=== PATIENT | female | born 1970 | race Caucasian/White ===

== ENCOUNTER 2020-03-09 09:02 | Emergency (ER) | payer OTHER, BC, SELFPAY ==
--- NOTE | ~2020-03-09 | XR_ITS ---
EXAMINATION: XR knee LT min 4V EXAM DATE: 03/09/2020 09:52 INDICATION: Left knee pain, fall. Abrasion to proximal tibia. TECHNIQUE: Left knee frontal, crosstable lateral, orthogonal oblique projections for interpretation. Comparison is made to prior examination from 02/17/2019. FINDINGS: No evidence osteochondral defect or joint body in the left knee joint. There are no acute fractures or dislocations identified. There is no subcutaneous gas. The soft tissue is unremarkabl e. There are no radiopaque foreign bodies. No joint effusion. IMPRESSION: 1. Left knee exam without acute osseous findings. Reviewed, dictated and finalized at location A.
--- NOTE | ~2020-03-09 | XR_ITS ---
XR foot LT min 3V DATE: 03/09/2020 09:51 INDICATION: Fall. Third toe pain. Abrasion. TECHNIQUE: 4 views COMPARISON: None FINDINGS: There is prominent plantar calcaneal enthesopathy, without erosive change or periostitis. No fracture or dislocation, periosteal reaction or bone destruction is detected. Some hypertrophic apparently chronic bony changes along the dorsal aspect of the tarsal area. IMPRESSION: No fracture or dislocation Prominent plantar calcaneal enthesopathy Reviewed, dictated and finalized at location B.
--- NOTE | ~2020-03-09 | XR_ITS ---
EXAMINATION: XR elbow LT min 3V DATE: 03/09/2020 09:51 INDICATION: Left elbow pain. TECHNIQUE: 4 views of left elbow were obtained. COMPARISON: None. FINDINGS: Bone alignment is normal. No fracture. Joint spaces are well maintained. IMPRESSION: 1. Normal left elbow. Reviewed, dictated and finalized at location A. IMPRESSION: 1. Normal left elbow.
[2020-03-09 09:09] VITALS: BP 116/64; PULSE 66; RESP 16; TEMP 36.1; O2SAT 99
--- NOTE | 2020-03-09 09:30 | ED.LOWEXIN ---
HPI - Extremity Injury (Lower) General Chief Complaint: Extremity Injury, Lower Stated Complaint: knee pain Time Seen by Provider: 03/09/20 09:08 Source: patient Mode of arrival: ambulatory Limitations: no limitations History of Present Illness HPI Narrative: This is a 49 year old female that presents to the ER for left knee pain after a fall today. Reports she tripped over a cone at work. Reports falling onto her left side. Reports left knee and elbow pain. Also reports some pain in the toes on the left side. Reports some abrasions to the elbow and knee. She was told by the school nurse to come to the ED to get updated on tetanus. Denies hitting her head, loss of consciousness, prodromal symptoms, or other injuries. Related Data Home Medications Medication Instructions Recorded Confirmed fluoxetine 20 mg capsule 20 mg PO DAILY 07/01/19 11/24/19 multivitamin 1 tablet PO DAILY 07/01/19 11/24/19 Allergies Allergy/AdvReac Type Severity Reaction Status Date / Time No Known Allergies Allergy Verified 03/09/20 09:17 Review of Systems Review of Systems: Narrative: CONSTITUTIONAL: Denies fever SKIN: Reports abrasions MUSCULOSKELETAL: Reports, joint pain, and myalgia. NEUROLOGIC: Denies numbness, or weakness. All systems reviewed & are unremarkable except as noted in HPI and below PMFSH Social History Social History Smoking status: Never smoker Alcohol intake: current Gender identity (if verbalized by the patient): Female Exam Narrative: Exam Narrative: GENERAL: Well-appearing, obese, and in no acute distress. HEAD: Normocephalic, atraumatic. EYES: EOMI. CHEST: Clear to auscultation. No respiratory distress. No wheezes rales or rhonchi HEART: Regular rate and rhythm. No murmur heard. Normal peripheral pulses. EXTREMITIES: Normal range of motion. No edema or obvious deformity. Normal radial and DP pulses SKIN: Warm, dry, no rash. Superficial abrasions to the left elbow and knee NEURO: No focal deficits. Alert and oriented x3. PSYCH: Normal mood and affect Course Vital Signs Vital signs: Vital Signs Temperature 97.0 F L 03/09/20 09:09 Pulse Rate 66 03/09/20 09:09 Respiratory Rate 16 03/09/20 09:09 Blood Pressure 116/64 03/09/20 09:09 Pulse Oximetry 99 03/09/20 09:09 Temperature 97.0 F L 03/09/20 09:09 Pulse Rate 66 03/09/20 09:09 Respiratory Rate 16 03/09/20 09:09 Blood Pressure 116/64 03/09/20 09:09 Pulse Oximetry 99 03/09/20 09:09 MDM - Extremity Injury (Lower) MDM Narrative Medical decision making narrative: Patient presents to the emergency department after a fall today with left elbow, knee, and toe pain. Denies prodromal symptoms, hitting her head, or loss of consciousness. Left elbow and knee x-rays are without acute findings. Left foot x-ray is also without acute osseous abnormalities. Patient had superficial abrasions. Reported she would like to get her tetanus vaccine updated while here as well. She was given this in the ED. Patient was instructed to rest, ice and take [id number] pain medication as needed. She is to follow-up with primary care doctor. She was given warnings to return to the ER Imaging Data Radiologist's impression: ITS Impressions Foot X-Ray 03/09/20 09:52 IMPRESSION: No fracture or dislocation Prominent plantar calcaneal enthesopathy Elbow X-Ray 03/09/20 10:01 IMPRESSION: 1. Normal left elbow. Knee X-Ray 03/09/20 10:05 IMPRESSION: 1. Left knee exam without acute osseous findings. Critical Care Time Critical Care Time Critical Care Time: No Discharge Plan Discharge Clinical Impression: Fall from ground level, Acute pain of left knee, Elbow pain, left, Pain in toe of left foot Patient Disposition: Home, Self-Care Condition: Stable Instructions: Contusion in Adults (ED) Additional Instructions: Return to the emergen
[2020-03-09] MEDS: ACETAMINOPHEN 500 MG TABLET 1000 MG PO (09:51)
[2020-03-09] MEDS: TETANUS,DIPHTHERIA,AC PERTUSSIS ADULT (0.5 ML) BOOSTRIX IM (09:52)
[2020-03-09 10:28] VITALS: BP 119/68; PULSE 70; RESP 16; O2SAT 99
== END 2020-03-09 10:30 | disposition home or self-care (01) ==
PROVIDERS: Emergency Provider Emergency Medicine; PCP Internal Medicine
DX: M25.562 Pain in left knee (principal); M25.522 Pain in left elbow; M79.675 Pain in left toe(s); Z23 Encounter for immunization; M77.32 Calcaneal spur, left foot; W18.09XA Striking against other object with subsequent fall, initial encounter
CPT/HCPCS: 73080; 73564; 73630; 76080; 90471; 90715; 99284; A9270

== ENCOUNTER 2022-04-26 10:03 | Outpatient (CLI) | payer OTHER, BC, SELFPAY ==
--- NOTE | 2022-04-26 10:34 | ECG_ITS ---
Measurements Intervals [place] Rate: 54 P: 14 MA: 148 QRS: 66 QRSD: 86 T: 50 QT: 439 QTc: 419 Interpretive Statements SINUS BRADYCARDIA BORDERLINE ECG NO PREVIOUS ECG AVAILABLE FOR COMPARISON Electronically Signed On 04-26-2022 12:28:50 PRODUCT DEVELOPMENT ASSISTANT by Rito Meyers D.O.
[2022-04-26 11:38] LABS: Basophils Percent Auto 0.5 % (0.2-1.2); Eosinophils Absolute Auto 0.1 K/mm3 (0-0.3); Hemoglobin 13.9 g/dL (12.0-15.0); Immature Granulocyte Absolute 0.01 K/mm3 (0.00-0.031); Immature Granulocyte Percent A 0.3 % (0-0.5); Lymphocytes Absolute Auto 1.36 K/mm3 (0.9-3.2); Lymphocytes Percent Auto 34.5 % (18.3-44.2); Mean Corpuscular HGB Conc 33.1 g/dl (32-36); Mean Corpuscular Hemoglobin 30.9 pg (26-34); Mean Corpuscular Volume 93.3 fl (80-100); Mean Platelet Volume 10.1 fl (7.4-10.4); Monocytes Absolute Auto 0.3 K/mm3 (0.1-0.6); Monocytes Percent Auto 6.3 % (2.6-8.5); Neutrophils Absolute Auto 2.2 K/mm3 (1.3-6.7); Neutrophils Percent Auto 56.4 % (45.5-73.1); Platelet Count Result 189 k/mm3 (150-375); Red Cell Distribution Width 12.7 % (11.5-14.5); White Blood Count 3.9 K/mm3 (4.5-10.0)
== END 2022-04-26 10:04 | disposition home or self-care (01) ==
LOC: ANHSURGERY 10:09
PROVIDERS: PCP Internal Medicine; Visit Provider Orthopaedic Surgery
DX: M17.10 Unilateral primary osteoarthritis, unspecified knee (principal); Z01.818 Encounter for other preprocedural examination; R00.1 Bradycardia, unspecified
CPT/HCPCS: 36415; 85025; 93005

== ENCOUNTER 2022-05-23 00:21 | Day surgery (SDC) | payer OTHER, BC, SELFPAY ==
--- NOTE | 2022-04-26 09:44 | PC.NURSE ---
PRE-OP INSTRUCTIONS, PLEASE READ CAREFULLY Report to the Outpatient Waiting Room, entrance under the green pavilion located off [facility], at time _0600_ on date _05/23/22_. Planned Procedure Time: _0730_. Time changes happen often and if your time is changed the preop area will call you the afternoon before. - You and your visitor will be asked to self-screen and do not enter if you have any COVID symptoms. - Only one visitor is requested with a max of two and NO children visitors are allowed at this time. - The patient visitor may be requested to leave or wait in car when not with patient due to distancing restrictions. - A mask is optional within the hospital. Patients may have clear liquids (water, carbonated beverages, clear teas, apple juice) until 3 hours prior to surgery (0430 AM) with a maximum of 20 ounces. - No food from midnight until time of surgery Take the following medications with a SIP of water the morning of surgery: _FLUOXETINE_ Medications to discontinue per ANESTHESIA - _MULTIVITAMIN, BIOTIN 3 DAYS PRIOR TO SURGERY, Date to take last dose 05/19/22_ Please no make-up, nail south sudanese, hairspray, perfume, deodorant, or body powder the day of surgery. No jewelry (including any body piercings) or valuables the day of surgery, leave them at home. Please take a shower or bath the night before, or the morning of, surgery with an antibacterial soap. Wear comfortable, loose fitting clothing. - Jewelry must be removed prior to entering the operating room. Rings and piercings that are not removed may be cut off. - The hospital will not accept responsibility for valuables. - Please leave all valuables, including medications, at home the day of surgery. If you are going home after surgery, a licensed national flatbed truck driver must drive you home. - NO public transportation without another adult if you receive anesthesia. - We recommend that an adult stay with you for 24 hours following discharge. - We also recommend that you do not drive, make important decision, drink alcoholic beverages, or take any drugs that were not prescribed by your health care provider for at least 24 hours after your discharge time. Follow any additional instructions given to you by DR. CORRALES. If you or anyone in your household have experienced Covid symptoms in the past week, please notify your surgeon or the nurse liaison at the phone number below for possible testing. Instructions given to _PT_and asked if any additional questions and then verbalized understanding. Patient advised to call surgeon office or pre surgery nurse liaison [phone] if any additional questions.
[2022-04-26 10:21] VITALS: BP 108/82; PULSE 52; RESP 18; TEMP 36.2; O2SAT 97; BMI 26.1
[2022-05-23] VITALS (10 sets, daily range): BP systolic 90–118; BP diastolic 38–68; PULSE 63–98; RESP 12–20; TEMP 36.6–37.1; O2SAT 95–100
--- NOTE | ~2022-05-23 | XR_ITS ---
Right Knee Technique: AP, lateral, and sunrise views were obtained. Clinical History: Postoperative Findings: Patient is status post partial arthroplasty of the knee involving the patellofemoral compar tment. No acute osseous fracture seen. Postoperative changes noted in the soft tissues. No joint effu maged is seen. Impression: Status post partial arthroplasty of the right knee involving the patellofemoral compartment. Postoperative changes in the surrounding soft tissues. Reviewed, dictated and finalized at location [] E FOREMAN Impression: Status post partial arthroplasty of the right knee involving the patellofemoral compartment. Postoperative changes in the surrounding soft tissues.
[2022-05-23] MEDS: LACTATED RINGERS 1,000 ML 30 ML IV CONT ×2 (06:30→09:46)
[2022-05-23] MEDS: TRANEXAMIC ACID 1,000MG/ISO100 1,000 MG/100 ML BAG 200 MG IVPB (06:30)
[2022-05-23] MEDS: ACETAMINOPHEN 500 MG TABLET 1000 MG PO (06:30)
--- NOTE | 2022-05-23 07:06 | WPDHPUPDATE1 ---
History and Physical Update Update Date/Time: 05/23/22 07:06 History and Physical has been reviewed, including an updated exam of the patient. There are NO changes in the patient's condition. Risks, benefits, and alternatives have been discussed and questions answered. Patient agrees to proceed with procedure.
--- NOTE | 2022-05-23 07:17 | WPDANESEPPF ---
Anes - Initial Pre Proc Eval Procedure: Operation Date: 05/23/22 07:30 Proposed Procedures p Right Patella Femoral Arthroplasty - Sabas Chadwick MD Date/Time: 05/23/22 07:17 Surgeon: Sabas Chadwick MD Pre Op Diagnosis: right patella femoral arthritis Patient Data Age: 51 Gender: F Height: 1.68 m Weight: 73.3 kg Last Vital Signs Temp 36.6 C 05/23/22 07:05 Pulse 63 05/23/22 07:05 Resp 18 05/23/22 07:05 BP 90/38 L 05/23/22 07:05 Pulse Ox 99 05/23/22 07:05 O2 Del Method Room Air 05/23/22 07:05 Allergies Allergy/AdvReac Type Severity Reaction Status Date / Time No Known Allergies Allergy Verified 05/23/22 07:04 Home Medications Medication Instructions Recorded Confirmed Type fluoxetine 20 mg capsule 20 mg PO DAILY 07/01/19 05/23/22 History biotin 1 mg capsule 1 mg PO DAILY 11/10/20 05/23/22 History multivitamin combination no.55 1 tablet PO DAILY 11/10/20 05/23/22 History Patient hx anesthesia problems: none Family hx anesthesia problems: none Results Review: All pre-operative results and documents have been reviewed as part of the pre-operative evaluation. FOR[facility]LY [facility], [facility] Past Medical History Medical History Anxiety Dysuria GERD (gastroesophageal reflux disease) Patellofemoral arthritis Restless leg syndrome Surgical History Surgical History H/O gastric sleeve (~2020) History of bilateral breast reduction surgery (~1999) History of History of tubal ligation (~1997) Family History Family History Mother Diabetes mellitus Other Family history of arthritis Social History Social History Smoking status: Never smoker Second hand tobacco smoke exposure: No Alcohol intake: never Substance use: never Substance use type: does not use Lack of Transportation: No Lack of Food: Never True Current Housing: I Have Housing Concerned About Future Housing: No Difficulty Paying Gas/Electric Bills: No Currently Unemployed: No Education: Associate Degree Difficulty w/ Childcare or Family Care: No Living arrangements: with family Gender identity (if verbalized by the patient): Female Spiritual care concerns: No Anes - Eval Final PreProcedure Day of Procedure 05/23/22 07:17 Patient weight: overweight Heart: regular rate and rhythm Lungs: clear to auscultation Airway: Mallampati scale class II Neurological: alert and oriented Last oral intake: >/= 8 hours ASA classification: II Emergent: no Anesthetic plan: proceed Anesthesia type and monitoring: general LMA and standard monitoring Results Review: All pre-operative results and documents have been reviewed as part of the pre-operative evaluation. Informed Consent: The patient's anesthetic plan and its attendant risks and benefits were discussed with the patient/family/POA. Questions were solicited and answers provided to the satisfaction of the patient/family/POA.
[2022-05-23] MEDS: ceFAZolin 2 GM/D5W 50 ML 2 GM/50 ML BAG IVPB (07:33)
[2022-05-23] MEDS: GENTAMICIN BONE CEMENT REFOBACIN 1 EACH TOPICAL (08:10)
[2022-05-23] MEDS: fentaNYL CITRATE INJ (*CRX) 100 MCG/2 ML VIAL 25 MCG IV PUSH ×8 (10:00→11:00)
[2022-05-23] MEDS: oxyCODONE HCL (*CRX) 5 MG TAB IR PO (11:06)
--- NOTE | 2022-05-23 12:00 | SUR.PHASEII ---
Vital signs stable, pain controlled. Patient dressed and waiting for PT eval before discharge.
[2022-05-23] MEDS: ONDANSETRON INJ 4 MG/2 ML VIAL IV PUSH (13:32)
--- NOTE | 2022-05-23 16:38 | W.PM.PROC2 ---
Procedure Note - Detailed Date of Procedure 05/23/22 Pre-op Diagnosis Right knee patellofemoral arthritis Post-op Diagnosis Same Procedure Performed Patellofemoral arthroplasty, right knee. Surgeon Sabas Chadwick MD Mixer Whipped Topping Camila Schmitt PA-C Anesthesia General Description of Procedure Preoperative antibiotics given. The leg was prepped and draped usual sterile fashion. A longitudinal incision was created over the anterior aspect of the knee. Well-padded tourniquet was placed on the thigh. The limb was exsanguinated and tourniquet inflated to 300 mmHg. A trivector approach to the knee was performed exposing the patella and trochlea area. Patella was measured and cut for resurfacing to replace the resected bone. The 35 mm round patella fit very nicely. Lug holes were drilled. Attention was turned to the trochlea. The intramedullary hole was drilled and the guide placed. Care was taken to align the distal cutting jig perpendicular to the AP axis. The anterior cortex was reference laterally to prevent notching. The guide was pinned and the anterior femur was resected with the oscillating saw. The guide for the Milling process was placed. The size 1 was clearly undersized. The size 2 fit almost anatomic. The Milling guide was secured and the bone resected according to the technique guide. The lug holes were drilled. The trial fit nicely. Patellar tracking was assessed. Excellent tracking was confirmed without tilt. The knee was copiously irrigated with antibiotic irrigation. Real implants were cemented into position. Care was taken that there was no prominence to the trochlear implant and the patella tracked very nicely. The tourniquet was released. Meticulous hemostasis maintained. Estimated blood loss 50 mL. The wound closed in layers with interrupted 1. Vicryl suture, 2. Stratafix suture, 2-0 Stratafix suture, 3-0 Stratafix suture. Steri-Strips placed on the skin with a bulky dressing. The patient tolerated the procedure well. There were no complications. Physician graphic design assistant, Camila Schmitt PA-C, required for surgery; including patient positioning, draping, tissue retraction, maintaining instrument position, wound closure, and dressing placement. Implants [employer] patellofemoral arthroplasty size 2 trochlea, 35 all polyethylene patella. Estimated Blood Loss -20.0 Pathology None sent Complications No immediate complications Condition Stable Disposition PACU [facility] Billing Surgery - Charge Forward: Surgery Billing
== END 2022-05-23 13:45 | disposition home or self-care (01) ==
PROVIDERS: PCP Internal Medicine; Visit Provider Orthopaedic Surgery
PROC: (CPT 27446; principal; 2022-05-23 07:30)
DX: M17.11 Unilateral primary osteoarthritis, right knee (principal); F41.9 Anxiety disorder, unspecified; Z98.84 Bariatric surgery status
CPT/HCPCS: 27599; 36415; 73560; 85025; 93005; 97110; 97161; A9270; C1713; J0171; J0690; J1100; J1170; J1885; J2250; J2270; J2370; J2405; J2704; J2795; J3010; J7120

== ENCOUNTER 2023-06-04 10:10 | Outpatient (CLI) | payer OTHER, BC, SELFPAY ==
--- NOTE | ~2023-06-04 | XR_ITS ---
XR knee RT 3V 06/04/2023 10:46 Indication: Right knee joint replacement Procedure: 3 views right knee Comparison: Comparison to multiple prior studies sequentially, with oldest reviewed study dated 10/2022. Findings: Status post partial knee arthroplasty of the patellofemoral compartment. Prosthesis well se ated. No fracture or traumatic malalignment. No significant joint effusion. Impression: 1: No acute bone or joint abnormality. Reviewed, dictated and finalized at location B. ARATION OPERATOR Impression: 1: No acute bone or joint abnormality.
== END 2023-06-04 10:11 | disposition home or self-care (01) ==
PROVIDERS: PCP Internal Medicine; Visit Provider Orthopaedic Surgery
DX: Z47.1 Aftercare following joint replacement surgery (principal)
CPT/HCPCS: 73562

== ENCOUNTER 2025-01-31 08:48 | Outpatient (CLI) | payer OTHER, BC, SELFPAY ==
--- OUTSIDE RECORDS SUMMARY | 2004-01-23 09:45 | XMS_ITS | Continuity of Care Document ---
Author Organization [facility] Address [id number] [place] [address] [place] [address] Phone Care Team Providers Care Busboy Name Role Phone Milton Cannon DO Unavailable Unavailable Advance Directives Directive Yes / No Effective Date File Name No Information Encounters Encounter Description Practice Location Reason(s) For Visit Diagnoses Date Provider Providers Copied on Encounter [facility], [address], [place], [place], [id number], [place] tel:[phone] [facility] (formerly [facility]) No Information Davis Gonzalez. [address] [place], [address], [place]. tel: [phone] Family History Family Member Type Diagnosis Age At Onset No Information Payers Payer name Insurance type Covered alliance party ID Authoriza tion(s) [employer] SOI CI [id number] [facility] [id number] Social History Type Description Quantity Date Captured Comments Sex Female Smoking Status No Information Chief Complaint And Reason For Visit No Information Reason For Referral Reason For Referral No Information History Of Present Illness Encounter Date Complaint History Of Prese nt Illness No Information Functional Status Date Functional Assessmen t No Information Instructions Date Instruction Additional Infor mation No Information Assessments Type Assessment Date No Information Patient Care Teams Name Effective Dates (start - stop) Status Members No Information
--- OUTSIDE RECORDS SUMMARY | 2025-01-31 09:13 | XMS_ITS | Clinical Summary ---
Author Organization [facility] Address [address] [place] [id number] Care Team Providers Care Manager Transfusion Name Role Phone Michel Medina MD Primary Care Provider [phone] Allergies No known active allergies Medications FLUoxetine (PROzac) 20 mg capsuleIndicatio ns:Leukopenia, unspecified type 1 capsule (20 mg total) daily Active vitamin D3-vitamin K2 25 mcg (1,000 unit)-90 mcg tablet,disintegr atingIndications :Leukopenia, unspecified type Take 125 mg by mouth Active cyanocobalamin, vitamin B-12, 5,000 mcg tablet, sublingualIndica tions:Leukopenia , unspecified type Place 5,000 mcg under the tongue daily Active biotin 10,000 mcg capsuleIndicatio ns:Leukopenia, unspecified type Take by mouth daily Active ascorbic acid (ascorbic acid with ton hips) 500 mg tablet,chewableI ndications:Leuko penia, unspecified type every other day Active multivitamin capsuleIndicatio ns:Leukopenia, unspecified type Take 2 capsules by mouth daily Active Active Problems Problem Noted Date Diagnosed Date Leukopenia 12/05/2022 Surgical History Surgery Date Site/Laterality Comments SLEEVE GASTROPLASTY COMBINED REDUCTION MAMMAPLAS TY W/ ABDOMINOPLASTY TUBAL LIGATION KNEE ARTHROPLASTY REDUCTION MAMMAPLASTY 06/09/1999 - 06/08/2000 Bilateral BREAST LUMPECTOMY Right BREAST CYST ASPIRATION Right Medical History Medical History Date Comments Anxiety Family History Relation Name Status Comments Father Social History Tobacco Use Types Packs/Day Years Used Date Smoking Tobacco: Former Cigarettes Tobacco Cessation:Counseling Given: Not Answered AUDIT-C Answer Date Recorded Frequency of Alcohol Consumption Not on file 12/06/2022 Q2: How many drinks containi ng alcohol do you have on a typical day when you are drinking? Patient does not drink Frequency of Binge Drinking Not on file 11/09 Comments No Sex and Gender Information Value Date Recorded Sex Assigned at Not on file Legal Sex Female 8:19 PM MOONER Gender Identity Not on file Sexual Orientation Not on file Obstetrics History Para Term AB IAB SAB Ectopic Multiple Livin g Live Births 2 2 2 Date Outcome GA Total Labor Labor/07/12 Weight Sex Type Anes PTL Liset A1 A5 Name Clin Term Term Last Filed Vital Signs Vital Sign Reading Time Taken Comments Blood Pressure 105/72 12/06/2022 2:37 PM CDT Pulse 53 12/06/2022 2:37 PM CDT Temperature 36.4 C (97.6 F) 12/06/2022 2:37 PM CDT Respiratory Rate 18 12/06/2022 2:37 PM CDT Oxygen Saturation 100% 12/06/2022 2:37 PM CDT Inhaled Oxygen Concentration - - Weight 72.1 kg (159 lb) 12/06/2022 2:37 PM CDT s hoes off Height 166.4 cm (5' 5.5) 12/06/2022 2:37 PM CDT Body Mass Index 26.06 12/06/2022 2:37 PM CDT Plan of Treatment Health Maintenance Due Date Last Done Comments Cervical Cancer Screening 1969 Colon Cancer Screening-Colonoscopy 1969 Depression Screening 1969 Hepatitis C Screening 1969 Hepatitis B Screening 10/30/1987 Regular Well Visit/Exam 18-64 10/30/1987 Covid-19 Vaccine ( season) 2024 04/27/2021, 04/27/2021, 07/26/2020, Additional history exists Influenza Vaccine (#1) 2025 2, 03/22/2021, 03/02/2020, Additional history exists Breast Cancer Screening-Mammogram 05/14/2025 05/14/2024 DTaP/Tdap/Td Vaccine (2 - Td or Tdap) 03/09/2030 03/09/2020 Zoster Vaccine Completed 11/01/2020, 06/08/2020 Pneumococcal vaccine <65 Aged Out No longer eligible based on patient's age to complete this topic Procedures Procedure Name Priority Date/Time Associated Diagnosis Comments SCREENING MAMMOGRAM BILATERAL W TOMER Schedule Routine, Read Routine (OP Routine) 05/14/2024 8:08 AM MOONER Screening mammogram, encounter for from Last 3 Months or Most Recently Relevant to Health Maintenance Results * Screening Mammogram Bilateral W Tomer (05/14/2024 8:08 AM MOONER) Anatomical Region Laterality Modality Breast Bilateral Mammography Impressions 05/26/2024 11:25 AM MOONER BI-RADS ATLAS category (overall): 1 - Negative There is no mammographic evidence of malignancy. A 1 year screening mammogram is recommended. The patient has been or will be contacted. We recommend annual screening mammography for women at average risk of breast cancer beginning at age 40, based on guidelines of the [employer] (ACR Practice Parameter for the Performance of Screening and Diagnostic Mammography) and [employer]. For women with and elevated risk of breast cancer, please refer to the ACR Practice Parameter for specific screening recommendations. The patient will be entered into a reminder system with a target due date of 1 year for her next screening exam. Narrative 05/26/2024 11:25 AM MOONER Screening Mammogram Bilateral W Tomer: 05/14/24 The study was acquired using full field digital technology and interpreted from soft copy. 2D digital mammographic views, as well as 3D digital tomosynthesis were performed in the CC and MLO projections. This study was resulted using Computer-Aided Detection (CAD). CLINICAL: Screening mammogram, encounter for. No relevant medical history has been documented for this patient. No known family history of breast cancer. Comparisons: 2022, 2021, and 2020. BREAST TISSUE: There are scattered areas of fibroglandular density. FINDINGS: No suspicious masses, suspicious calcifications, or other suspicious findings are seen within either breast. us Self Screening Mammogram IMG MAMMO PROCEDURES Fi nal Result from Last 3 Months or Most Recently Relevant to Health Maintenance Insurance [facility] OOS [facility] CHOICE PLUS [facility] H[facility]/PPO Address: [address] [address] [place] [address] [facility]ICE PLUS [facility] H[facility]/PPO Address: [address] [address] [place] [address] [employer]UE [employer] CHOICE OOS Member Subscriber Plan / Payer (Ef fective 2022-Present) Name:Keyshawn Castano Relation to Subscriber:Spouse Name:Elie Castano Date of :1967 (Home) [address]: [address] [place] [address] Payer ID:[id number] (NAIC) Type:BC ALLIANCE Address: [address] [place] [phone] Care Teams Manager Transfusion Relationship Specialty Start Date End Date Michel Medina MD PCP - General Internal Medicine 12/12/22
--- OUTSIDE RECORDS SUMMARY | 2025-01-31 09:13 | XMS_ITS | Clinical Summary ---
Author Organization [facility] Address [address] [place] [address] Care Team Providers Care Analytical Research Chemist Name Role Phone Michel Medina MD Primary Care Provider [phone] Source Comments [facility],non-owned Affiliates and Associated Physician Practices is amultiple site organization consisting of ambulatory clinics and hospital sitesin [place], [place], [place] and [place]. This disclosure is being madepursuant to the Care Everywhere program and may not contain all information available regarding this patient. Last updated 18.[facility] Allergies No known active allergies Medications * Be aware that medications may not be up to date on this document. Alwaysverify current medications with the patient. FLUOXETINE HCL PO Ac tive Social History Tobacco Use Types Packs/Day Years Used Date Smoking Tobacco: Never Comments Unknown Sex and Gender Information Value Date Recorded Sex Assigned at Not on file Legal Sex Female 10:41 PM CDT Gender Identity Not on file Sexual Orientation Not on file Last Filed Vital Signs Vital Sign Reading Time Taken Comments Blood Pressure 104/70 10/19/2016 10:19 AM CDT Pulse 82 10/19/2016 10:19 AM CDT Temperature 36.8 C (98.3 F) 10/19/2016 10:19 AM CDT Respiratory Rate 16 10/19/2016 10:19 AM CDT Oxygen Saturation 99% 10/19/2016 10:19 AM CDT Inhaled Oxygen Concentration - - Weight 99.8 kg (220 lb) 10/19/2016 10:19 AM CDT Height 167.6 cm (5' 6) 10/19/2016 10:19 AM CDT Body Mass Index 35.51 10/19/2016 10:19 AM CDT Plan of Treatment Health Maintenance Due Date Last Done Comments COLOGUARD (AGES 45-75) - COL ON CA SCREENING 1969 COLON MONITORING 1969 COLONOSCOPY - COLON CA SCREENING 1969 CT COLONOGRAPHY - COLON CA SCREENING 1969 Colorectal Cancer Screening 1969 FIT - COLON CA SCREENING 1969 FLEX SIG - COLON CA SCREENING 1969 LIPID TESTING 1969 MAMMOGRAM 1969 HIV SCREENING 1984 HEPATITIS C SCREENING 10/25/1987 DTAP/TDAP/TD VACCINES (1 - Tdap) 1988 HEPATITIS B VACCINE (1 of 3 - 19+ 3-dose series) 1988 PNEUMOCOCCAL VACCINE 50+ (1 of 1 - PCV) 10/30/2019 ZOSTER VACCINE (1 of 2) 10/30/2019 COVID-19 VACCINE (1 - 2023-2 5 season) 2024 DEPRESSION SCREENING 06/09/2024 INFLUENZA VACCINE (#1) 2025 HIB VACCINE Aged Out No longer eligi ble based on patient's age to complete this topic HPV VACCINE Aged Out No longer eligi ble based on patient's age to complete this topic MENINGOCOCCAL (Group B) VACC INE SHARED DECISION-MAKING Aged Out No longer eligibl e based on patient's age to complete this topic MENINGOCOCCAL GROUPS A/C/Y/W VACCINE Aged Out No longer eligible b ased on patient's age to complete this topic Insurance Advance Directives Documents on File Type Date Recorded Patient Wrapper Counter Expl anation Adv Directive/Living Will/POA 10/18/2016 Care Teams Analytical Research Chemist Relationship Specialty Start Date End Date Michel Medina MD PCP - General Internal Medicine 10/19/16
--- OUTSIDE RECORDS SUMMARY | 2025-01-31 09:13 | XMS_ITS | Clinical Summary ---
Author Organization [facility] Address [address] [place] [address] Care Team Providers Care Audio Operator Name Role Phone Unavailable Primary Care Provider Unavailabl e Immunizations Immunization Administration Dates Next Due Covid-19, Mrna, Lnp-s, PF, 5 0 mcg/0.25 mL dose (Moderna) 04/27/2021 Social History Tobacco Use Types Packs/Day Years Used Date Smoking Tobacco: Never Assessed Comments Unknown Sex and Gender Information Value Date Recorded Sex Assigned at Not on file Legal Sex Female 8:40 AM CDT Gender Identity Not on file Sexual Orientation Not on file Plan of Treatment Health Maintenance Due Date Last Done Comments Hepatitis C Virus (HCV) Screening 1969 Hepatitis B Immunization (1 of 3 - 19+ 3-dose series) 1988 Pap Smear 1990 Cervical Cancer Screening (CCS) 10/30/1999 HPV/Cotest 10/30/1999 Cologuard 2014 Colonoscopy 2014 Colorectal Cancer Screening 2014 Immunochemical Fecal Occult Blood 2014 Pneumococcal Immunization (50+ years) (1 of 1 - PCV) 10/30/2019 SARS-COV-2 Immunization (2023- season) 2024 04/27/2021, 07/26/2020, 07/04/2020 Influenza Immunization (#1) 02/07/202503/09, 03/02/2020, 06/07/2019, Additional history exists Respiratory Syncytial Virus (RSV) Immunization (Adult) (1 - 1-dose 75+ series) 2044 DTaP/Tdap/Td Immunization Discontinued 03/09/2020 TdaP Immunization Completed 03/09/2020 Zoster Immunization Completed 11/01/2020, 0 Human Papillomavirus (HPV) Immunization Aged Out No longer eligible based on patient's age to complete this topic Meningococcal Immunization (ACWY) Aged Out No longer eligible based on patient's age to complete this topic Rotavirus Immunization Aged Out No lo nger eligible based on patient's age to complete this topic
[2025-01-31 09:43] LABS: Alanine Aminotransferase 16 U/L (6-35); Aspartate Amino Transferase 37 U/L (14-36)
== END 2025-01-31 08:49 | disposition home or self-care (01) ==
LOC: ANHLAB 08:51
PROVIDERS: PCP Internal Medicine; Visit Provider Podiatrist Foot & Ankle Surgery
DX: B35.1 Tinea unguium (principal)
CPT/HCPCS: 36415; 84450; 84460